=== PATIENT | male | born 1985 ===

== ENCOUNTER 2022-03-10 17:03 | Emergency (ER) | payer OTHER ==
[2022-03-11] MEDS ORDERED: HYDROcodone/ACETAMINOPHEN 5-325 MG TAB PO ONE (00:09)
[2022-03-11] MEDS ORDERED: KETOROLAC 30 MG/1 ML INJ IM ONE (00:09)
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
[2022-03-11 02:25] VITALS: BP 152/91
== END 2022-03-11 02:25 | disposition home or self-care (01) ==
LOC: ED 17:03
DX: M54.9 Dorsalgia, unspecified (principal); V89.2XXA Person injured in unspecified motor-vehicle accident, traffic, initial encounter; Y93.89 Activity, other specified; Y92.89 Other specified places as the place of occurrence of the external cause; Y99.8 Other external cause status
CPT/HCPCS: 72131; 99284; J1885